=== PATIENT | male | born 1950 | race Caucasian/White ===

== ENCOUNTER 2022-08-06 14:17 | Inpatient (IN) ==
[2022-08-06] MEDS ORDERED: Iopamidol - 370 500 ML MLS IVP ONE (17:40)
[2022-08-06] MEDS ORDERED: 0.9 % Sodium Chloride 1,000 ML IVC ONE (19:08)
[2022-08-06] MEDS ORDERED: cefTRIAXone 2,000 MG in 0.9 % Sodium Chloride 20 ML IVP ONE (19:09)
[2022-08-06] MEDS ORDERED: Vancomycin 1,750 MG/517.5 ML IV.SOLN IVPB ONE (19:09)
[2022-08-06] MEDS ORDERED: *HR* FentaNYL (PF) 100 MCG/2 ML VIAL IVP ONE (20:12)
[2022-08-06] MEDS: Tdap (Boostrix) Vaccine 0.5 ML SYRINGE IM ONE ×2 (21:05→21:11)
[2022-08-06] MEDS ORDERED: Acetaminophen 325 MG TABLET PO PRN (21:37)
[2022-08-06] MEDS ORDERED: Naloxone 0.4 MG/ML INJ IVP PRN (21:37)
[2022-08-06] MEDS ORDERED: Ondansetron 4 MG/2 ML VIAL IVP PRN (21:37)
[2022-08-06] MEDS ORDERED: Vancomycin 1,750 MG in 0.9 % Sodium Chloride 250 ML IVPB SCH (22:00)
[2022-08-06] MEDS ORDERED: *HR* Dextrose 50 % in Water (Syg) 50 ML SYRINGE IVP PRN (22:01)
[2022-08-06] MEDS ORDERED: D5% in Water 1,000 ML IVC PRN (22:01)
[2022-08-06] MEDS ORDERED: Dextrose Gel 15 GM/37.5 ML TUBE PO PRN ×2 (22:01)
[2022-08-07] MEDS: Melatonin 3 MG TABLET PO SCH ×2 (00:07→20:26)
[2022-08-07] MEDS: Morphine Sulfate ER (12 HR) 15 MG TABLET.ER PO SCH ×3 (00:08→20:26)
[2022-08-07 00:45] LABS: Basophils % 0.3 %; Eosinophils # 0.2 K/mcL (0.0-0.6); Eosinophils % 1.8 %; Hematocrit 39.1 % (37.5-50.1); Hemoglobin 12.5 g/dL (12.9-16.9); Immature Granulocytes % 0.3 % (0-4); Lymphocytes # 1.5 K/mcL (0.6-4.6); Mean Corpuscular Hemoglobin 25.9 pg (28.0-33.3); Mean Corpuscular Volume 81.1 fL (83.0-100.0); Mean Platelet Volume 9.1 fL (9.4-12.4); Monocytes % 11.2 %; Neutrophils # 6.1 K/mcL (1.6-8.9); Platelet Count 208 K/mcL (140-400); Red Blood Count 4.82 M/mcL (4.19-5.50); Red Cell Distribution Width 14.8 % (11.5-14.5); Segmented Neutrophils % 69.4 %; White Blood Count 8.8 K/mcL (4.3-11.1)
[2022-08-07 01:11] LABS: Alanine Aminotransferase 11 Units/L (7-52); Albumin 3.7 g/dL (3.5-5.7); Albumin/Globulin Ratio 1.2 (1.1-2.2); Alkaline Phosphatase 95 Units/L (34-104); Aspartate Amino Transferase 14 Units/L (13-39); Bilirubin,Direct 0.1 mg/dL (0.0-0.2); Bilirubin,Indirect 0.5 mg/dL (0.0-1.0); Bilirubin,Total 0.6 mg/dL (0.3-1.0); C-Reactive Protein 29 mg/L (Less than 10); Globulin 3.2 g/dL (2.4-3.5); Magnesium 1.6 mg/dL (1.6-2.6); Total Protein 6.9 g/dL (6.4-8.9)
[2022-08-07 01:16] LABS: INR 1.1; Prothrombin Time 12.6 Seconds (9.4-12.1)
[2022-08-07 01:25] LABS: Thyroid Stimulating Hormone 2.906 mcIU/mL (0.340-5.600)
[2022-08-07 01:28] LABS: Estimated Average Glucose 174 mg/dl; Hemoglobin A1C 7.7 %
[2022-08-07 03:44] LABS: BUN/Creatinine Ratio 13 (6-26); Blood Urea Nitrogen 9 mg/dL (8-23)
[2022-08-07] MEDS: Vancomycin 1,250 MG/262.5 ML IV.SOLN IVPB SCH ×2 (06:24→18:03)
[2022-08-07] MEDS: Levothyroxine 25 MCG TABLET PO SCH (06:28)
[2022-08-07] MEDS: Insulin LISPRO 300 UNITS/3 ML VIAL SUBQ SCH ×3 (08:43→16:41)
[2022-08-07] MEDS: Cholecalciferol (D-3) 1,000 UNIT (25MCG) TABLET PO SCH (08:53)
[2022-08-07] MEDS: Loratadine 10 MG TABLET PO SCH (08:54)
[2022-08-07] MEDS: Baclofen 10 MG TABLET PO SCH ×4 (08:54→20:26)
[2022-08-07] MEDS: amLODIPine 5 MG TABLET PO SCH (08:54)
[2022-08-07] MEDS: lisinopriL 20 MG TABLET PO SCH (08:54)
[2022-08-07] MEDS: hydroCHLOROthiazide 25 MG TABLET PO SCH (08:54)
[2022-08-07] MEDS: cefTRIAXone 1,000 MG in 0.9 % Sodium Chloride Mini Bag 100 ML IVPB SCH (08:55)
[2022-08-07] MEDS ORDERED: FLUTICASONE PROPION IH SCH (09:00)
[2022-08-07] MEDS ORDERED: SALMETEROL IH SCH (09:00)
[2022-08-07] MEDS: Budesonide/Formoterol 160/4.5 1 PUFF INH IH SCH ×2 (13:10→20:09)
[2022-08-07] MEDS ORDERED: Insulin DETEMIR 100 UNIT/ML X5UNITS SUBQ SCH (21:00)
[2022-08-08] MEDS: Levothyroxine 25 MCG TABLET PO SCH (05:40)
[2022-08-08] MEDS ORDERED: Vancomycin 1,500 MG/265 ML IV.SOLN IVPB SCH (07:00)
[2022-08-08] MEDS: Budesonide/Formoterol 160/4.5 1 PUFF INH IH SCH ×2 (07:42→21:52)
[2022-08-08] MEDS: Insulin LISPRO 300 UNITS/3 ML VIAL SUBQ SCH ×2 (08:35→16:49)
[2022-08-08] MEDS: hydroCHLOROthiazide 25 MG TABLET PO SCH (08:45)
[2022-08-08] MEDS: amLODIPine 5 MG TABLET PO SCH (08:45)
[2022-08-08] MEDS: Baclofen 10 MG TABLET PO SCH ×4 (08:45→20:13)
[2022-08-08] MEDS: Loratadine 10 MG TABLET PO SCH (08:45)
[2022-08-08] MEDS: Morphine Sulfate ER (12 HR) 15 MG TABLET.ER PO SCH ×2 (08:45→20:13)
[2022-08-08] MEDS: Cholecalciferol (D-3) 1,000 UNIT (25MCG) TABLET PO SCH (08:45)
[2022-08-08] MEDS: lisinopriL 20 MG TABLET PO SCH (08:45)
[2022-08-08] MEDS: cefTRIAXone 1,000 MG in 0.9 % Sodium Chloride Mini Bag 100 ML IVPB SCH (08:46)
[2022-08-08] MEDS ORDERED: Lidocaine -MPF 2% 2 ML VIAL ONE (09:43)
[2022-08-08] MEDS ORDERED: Ondansetron 4 MG/2 ML VIAL ONE (09:43)
[2022-08-08] MEDS ORDERED: *HR* FentaNYL (PF) 100 MCG/2 ML VIAL ONE ×2 (09:43→10:28)
[2022-08-08] MEDS ORDERED: *HR* Propofol 200 MG/20 ML VIAL IVP ONE (09:43)
[2022-08-08] MEDS ORDERED: Lidocaine/EPI 1:100k 1% 10 ML Vial ONE (09:47)
[2022-08-08] MEDS ORDERED: Lidocaine HCL 4 ML Topical Solution (Laryng-O-Jet Kit Sterile Pak) TP ONE (10:11)
[2022-08-08] MEDS ORDERED: *HR* Rocuronium Bromide 50 MG/5 ML VIAL ONE (10:11)
[2022-08-08] MEDS ORDERED: Acetaminophen IV 1,000 MG/100 ML BAG IVPB ONE (10:25)
[2022-08-08] MEDS ORDERED: Promethazine 6.25 MG in Water for inj. (sterile) 20 ML IVPB PRN (11:06)
[2022-08-08] MEDS ORDERED: *HR* FentaNYL (PF) 100 MCG/2 ML VIAL IVP PRN (11:06)
[2022-08-08] MEDS: *HR* HYDROmorphone PF 0.5 MG/0.5 ML SYRINGE IVP PRN ×2 (11:20→11:25)
[2022-08-08] MEDS ORDERED: D5% in Water 1,000 ML IVC PRN (12:05)
[2022-08-08] MEDS ORDERED: Dextrose Gel 15 GM/37.5 ML TUBE PO PRN ×2 (12:05)
[2022-08-08] MEDS ORDERED: *HR* Dextrose 50 % in Water (Syg) 50 ML SYRINGE IVP PRN (12:05)
[2022-08-08] MEDS ORDERED: Naloxone 0.4 MG/ML INJ IVP PRN (12:05)
[2022-08-08] MEDS ORDERED: Acetaminophen 325 MG TABLET PO PRN (12:05)
[2022-08-08] MEDS ORDERED: Ondansetron 4 MG/2 ML VIAL IVP PRN (12:05)
[2022-08-08] MEDS: Gabapentin 300 MG CAPSULE PO SCH ×2 (16:24→20:12)
[2022-08-08] MEDS: Vancomycin 1,500 MG/265 ML IV.SOLN IVPB SCH (20:11)
[2022-08-08] MEDS: Melatonin 3 MG TABLET PO SCH (20:12)
[2022-08-08] MEDS: Insulin DETEMIR 100 UNIT/ML X5UNITS SUBQ SCH (20:22)
[2022-08-08] MEDS ORDERED: [UNRECOGNIZED DRUG - REMARK] PO SCH (21:00)
[2022-08-08] MEDS: Albuterol 2.5 MG/3 ML NEBULIZER IH SCH (21:51)
[2022-08-09] MEDS: Levothyroxine 25 MCG TABLET PO SCH (05:21)
[2022-08-09] MEDS: Albuterol 2.5 MG/3 ML NEBULIZER IH SCH ×2 (07:18→20:28)
[2022-08-09] MEDS: Budesonide/Formoterol 160/4.5 1 PUFF INH IH SCH ×2 (07:18→20:28)
[2022-08-09] MEDS: Gabapentin 300 MG CAPSULE PO SCH ×3 (08:08→20:19)
[2022-08-09] MEDS: Aspirin Enteric Coated 81 MG Tablet PO SCH (08:08)
[2022-08-09] MEDS: Cholecalciferol (D-3) 1,000 UNIT (25MCG) TABLET PO SCH (08:08)
[2022-08-09] MEDS: lisinopriL 20 MG TABLET PO SCH (08:08)
[2022-08-09] MEDS: Morphine Sulfate ER (12 HR) 15 MG TABLET.ER PO SCH ×2 (08:08→20:18)
[2022-08-09] MEDS: Isosorbide MONOnitrate (24 HR) 30 MG TAB.ER.24H PO SCH (08:09)
[2022-08-09] MEDS: amLODIPine 5 MG TABLET PO SCH (08:09)
[2022-08-09] MEDS: hydroCHLOROthiazide 25 MG TABLET PO SCH (08:09)
[2022-08-09] MEDS: Baclofen 10 MG TABLET PO SCH ×4 (08:09→20:18)
[2022-08-09] MEDS: Loratadine 10 MG TABLET PO SCH (08:09)
[2022-08-09] MEDS: Vancomycin 1,500 MG/265 ML IV.SOLN IVPB SCH ×2 (08:12→19:09)
[2022-08-09] MEDS: Fluticasone Propionate Nasal 50 MCG/SPRAY BOTTLE NS SCH (08:15)
[2022-08-09] MEDS: Insulin LISPRO 300 UNITS/3 ML VIAL SUBQ SCH ×3 (08:26→16:36)
[2022-08-09] MEDS ORDERED: cefTRIAXone 1,000 MG in 0.9 % Sodium Chloride 10 ML IVP SCH (09:00)
[2022-08-09] MEDS: Piperacillin/Tazobactam 3.375 GM in 0.9 % Sodium Chloride Mini Bag 100 ML IVPB SCH ×2 (14:49→23:25)
[2022-08-09] MEDS: Melatonin 3 MG TABLET PO SCH (20:19)
[2022-08-09] MEDS: Insulin DETEMIR 100 UNIT/ML X5UNITS SUBQ SCH (20:23)
[2022-08-10 03:38] LABS: Basophils % 0.5 %; Eosinophils # 0.1 K/mcL (0.0-0.6); Eosinophils % 0.7 %; Hematocrit 37.2 % (37.5-50.1); Hemoglobin 11.6 g/dL (12.9-16.9); Immature Granulocytes % 0.2 % (0-4); Lymphocytes # 1.8 K/mcL (0.6-4.6); Lymphocytes % 22.6 %; Mean Corpuscular HGB Conc 31.2 g/dL (31.6-35.5); Mean Corpuscular Hemoglobin 25.7 pg (28.0-33.3); Mean Corpuscular Volume 82.5 fL (83.0-100.0); Mean Platelet Volume 9.1 fL (9.4-12.4); Monocytes # 0.8 K/mcL (0.0-1.3); Monocytes % 9.7 %; Neutrophils # 5.3 K/mcL (1.6-8.9); Platelet Count 219 K/mcL (140-400); Red Blood Count 4.51 M/mcL (4.19-5.50); Red Cell Distribution Width 14.9 % (11.5-14.5); Segmented Neutrophils % 66.3 %
[2022-08-10 03:59] LABS: BUN/Creatinine Ratio 28 (6-26); Blood Urea Nitrogen 21 mg/dL (8-23); Calcium 8.6 mg/dL (8.6-10.3); Carbon Dioxide 28 mEq/L (23-29); Chloride 106 mEq/L (98-107); Glucose 177 mg/dL (70-105); Magnesium 1.9 mg/dL (1.6-2.6); Osmolality,Calculated 297 (280-300); Phosphorous 3.2 mg/dL (2.7-4.5); Potassium 3.9 mEq/L (3.5-5.1); Sodium 140 mEq/L (136-145)
[2022-08-10] MEDS: *HR* Enoxaparin 40 MG/0.4 ML SYRINGE SQ SCH (05:38)
[2022-08-10] MEDS: Levothyroxine 25 MCG TABLET PO SCH (05:38)
[2022-08-10] MEDS: amLODIPine 5 MG TABLET PO SCH (08:34)
[2022-08-10] MEDS: lisinopriL 20 MG TABLET PO SCH (08:34)
[2022-08-10] MEDS: Aspirin Enteric Coated 81 MG Tablet PO SCH (08:34)
[2022-08-10] MEDS: Isosorbide MONOnitrate (24 HR) 30 MG TAB.ER.24H PO SCH (08:34)
[2022-08-10] MEDS: Loratadine 10 MG TABLET PO SCH (08:34)
[2022-08-10] MEDS: hydroCHLOROthiazide 25 MG TABLET PO SCH (08:34)
[2022-08-10] MEDS: Gabapentin 300 MG CAPSULE PO SCH ×3 (08:35→21:00)
[2022-08-10] MEDS: Cholecalciferol (D-3) 1,000 UNIT (25MCG) TABLET PO SCH (08:35)
[2022-08-10] MEDS: Morphine Sulfate ER (12 HR) 15 MG TABLET.ER PO SCH ×2 (08:35→20:59)
[2022-08-10] MEDS: Baclofen 10 MG TABLET PO SCH ×4 (08:35→20:59)
[2022-08-10] MEDS: Fluticasone Propionate Nasal 50 MCG/SPRAY BOTTLE NS SCH (08:36)
[2022-08-10] MEDS: Piperacillin/Tazobactam 3.375 GM in 0.9 % Sodium Chloride Mini Bag 100 ML IVPB SCH (08:37)
[2022-08-10] MEDS: Vancomycin 1,500 MG/265 ML IV.SOLN IVPB SCH (08:37)
[2022-08-10] MEDS: Insulin LISPRO 300 UNITS/3 ML VIAL SUBQ SCH ×3 (08:49→18:09)
[2022-08-10] MEDS: Albuterol 2.5 MG/3 ML NEBULIZER IH SCH (11:08)
[2022-08-10] MEDS: Budesonide/Formoterol 160/4.5 1 PUFF INH IH SCH ×2 (11:09→20:14)
[2022-08-10] MEDS: cefTRIAXone 2,000 MG in 0.9 % Sodium Chloride 20 ML IVP SCH (15:37)
[2022-08-10] MEDS: metroNIDAZOLE 500 MG TABLET PO SCH ×2 (15:39→21:00)
[2022-08-10] MEDS: Melatonin 3 MG TABLET PO SCH (20:59)
[2022-08-10] MEDS: Insulin DETEMIR 100 UNIT/ML X5UNITS SUBQ SCH (21:00)
[2022-08-11] MEDS: Albuterol 2.5 MG/3 ML NEBULIZER IH SCH ×3 (05:16→20:05)
[2022-08-11] MEDS: Levothyroxine 25 MCG TABLET PO SCH (05:56)
[2022-08-11] MEDS: *HR* Enoxaparin 40 MG/0.4 ML SYRINGE SQ SCH (05:56)
[2022-08-11] MEDS: Insulin LISPRO 300 UNITS/3 ML VIAL SUBQ SCH ×3 (09:51→18:08)
[2022-08-11] MEDS: Baclofen 10 MG TABLET PO SCH ×4 (09:52→22:39)
[2022-08-11] MEDS: Loratadine 10 MG TABLET PO SCH (09:53)
[2022-08-11] MEDS: metroNIDAZOLE 500 MG TABLET PO SCH ×3 (09:53→22:38)
[2022-08-11] MEDS: lisinopriL 20 MG TABLET PO SCH (09:53)
[2022-08-11] MEDS: Isosorbide MONOnitrate (24 HR) 30 MG TAB.ER.24H PO SCH (09:53)
[2022-08-11] MEDS: Gabapentin 300 MG CAPSULE PO SCH ×3 (09:53→22:36)
[2022-08-11] MEDS: Cholecalciferol (D-3) 1,000 UNIT (25MCG) TABLET PO SCH (09:54)
[2022-08-11] MEDS: hydroCHLOROthiazide 25 MG TABLET PO SCH (09:54)
[2022-08-11] MEDS: Aspirin Enteric Coated 81 MG Tablet PO SCH (09:54)
[2022-08-11] MEDS: amLODIPine 5 MG TABLET PO SCH (09:54)
[2022-08-11] MEDS: Morphine Sulfate ER (12 HR) 15 MG TABLET.ER PO SCH ×2 (09:54→22:39)
[2022-08-11] MEDS: Fluticasone Propionate Nasal 50 MCG/SPRAY BOTTLE NS SCH (09:55)
[2022-08-11] MEDS: cefTRIAXone 2,000 MG in 0.9 % Sodium Chloride 20 ML IVP SCH (09:55)
[2022-08-11] MEDS: Budesonide/Formoterol 160/4.5 1 PUFF INH IH SCH ×2 (11:40→20:05)
[2022-08-11] MEDS: Melatonin 3 MG TABLET PO SCH (22:39)
[2022-08-11] MEDS: Insulin DETEMIR 100 UNIT/ML X5UNITS SUBQ SCH (22:39)
[2022-08-12] MEDS: *HR* Enoxaparin 40 MG/0.4 ML SYRINGE SQ SCH (05:51)
[2022-08-12] MEDS: Levothyroxine 25 MCG TABLET PO SCH (05:52)
[2022-08-12 09:05] LABS: BUN/Creatinine Ratio 28 (6-26); Blood Urea Nitrogen 20 mg/dL (8-23); Calcium 9.1 mg/dL (8.6-10.3); Carbon Dioxide 29 mEq/L (23-29); Chloride 103 mEq/L (98-107); Glucose 202 mg/dL (70-105); Osmolality,Calculated 294 (280-300); Phosphorous 3.6 mg/dL (2.7-4.5); Potassium 3.9 mEq/L (3.5-5.1); Sodium 138 mEq/L (136-145)
[2022-08-12] MEDS: metroNIDAZOLE 500 MG TABLET PO SCH ×3 (09:05→21:20)
[2022-08-12] MEDS: Loratadine 10 MG TABLET PO SCH (09:05)
[2022-08-12] MEDS: Gabapentin 300 MG CAPSULE PO SCH ×3 (09:05→21:21)
[2022-08-12] MEDS: Morphine Sulfate ER (12 HR) 15 MG TABLET.ER PO SCH ×2 (09:05→21:20)
[2022-08-12] MEDS: cefTRIAXone 2,000 MG in 0.9 % Sodium Chloride 20 ML IVP SCH (09:06)
[2022-08-12] MEDS: hydroCHLOROthiazide 25 MG TABLET PO SCH (09:06)
[2022-08-12] MEDS: Baclofen 10 MG TABLET PO SCH ×4 (09:06→21:20)
[2022-08-12] MEDS: lisinopriL 20 MG TABLET PO SCH (09:06)
[2022-08-12] MEDS: Aspirin Enteric Coated 81 MG Tablet PO SCH (09:06)
[2022-08-12] MEDS: amLODIPine 5 MG TABLET PO SCH (09:06)
[2022-08-12] MEDS: Cholecalciferol (D-3) 1,000 UNIT (25MCG) TABLET PO SCH (09:06)
[2022-08-12] MEDS: Isosorbide MONOnitrate (24 HR) 30 MG TAB.ER.24H PO SCH (09:06)
[2022-08-12] MEDS: Insulin LISPRO 300 UNITS/3 ML VIAL SUBQ SCH ×3 (09:10→17:28)
[2022-08-12] MEDS: Budesonide/Formoterol 160/4.5 1 PUFF INH IH SCH ×2 (10:42→20:29)
[2022-08-12] MEDS: Albuterol 2.5 MG/3 ML NEBULIZER IH SCH ×2 (10:44→20:29)
[2022-08-12] MEDS: Fluticasone Propionate Nasal 50 MCG/SPRAY BOTTLE NS SCH (12:14)
[2022-08-12] MEDS: CeFAZolin 2,000 MG/120 ML BAG IVPB SCH ×3 (13:59→23:59)
[2022-08-12] MEDS: Melatonin 3 MG TABLET PO SCH (21:20)
[2022-08-12] MEDS: Insulin DETEMIR 100 UNIT/ML X5UNITS SUBQ SCH (21:21)
[2022-08-13] MEDS: *HR* Enoxaparin 40 MG/0.4 ML SYRINGE SQ SCH (05:25)
[2022-08-13] MEDS: Levothyroxine 25 MCG TABLET PO SCH (05:25)
[2022-08-13] MEDS: CeFAZolin 2,000 MG/120 ML BAG IVPB SCH ×2 (07:35→15:18)
[2022-08-13] MEDS: Gabapentin 300 MG CAPSULE PO SCH ×2 (07:35→15:18)
[2022-08-13] MEDS: Cholecalciferol (D-3) 1,000 UNIT (25MCG) TABLET PO SCH (07:35)
[2022-08-13] MEDS: Loratadine 10 MG TABLET PO SCH (07:36)
[2022-08-13] MEDS: Isosorbide MONOnitrate (24 HR) 30 MG TAB.ER.24H PO SCH (07:36)
[2022-08-13] MEDS: Morphine Sulfate ER (12 HR) 15 MG TABLET.ER PO SCH (07:36)
[2022-08-13] MEDS: amLODIPine 5 MG TABLET PO SCH (07:36)
[2022-08-13] MEDS: Baclofen 10 MG TABLET PO SCH ×2 (07:37→13:03)
[2022-08-13] MEDS: Fluticasone Propionate Nasal 50 MCG/SPRAY BOTTLE NS SCH (07:37)
[2022-08-13] MEDS: lisinopriL 20 MG TABLET PO SCH (07:37)
[2022-08-13] MEDS: Aspirin Enteric Coated 81 MG Tablet PO SCH (07:37)
[2022-08-13] MEDS: hydroCHLOROthiazide 25 MG TABLET PO SCH (07:37)
[2022-08-13] MEDS: metroNIDAZOLE 500 MG TABLET PO SCH ×2 (07:37→15:18)
[2022-08-13 07:41] VITALS: BP 146/77; PULSE 52; TEMP 98
[2022-08-13] MEDS: Insulin LISPRO 300 UNITS/3 ML VIAL SUBQ SCH ×2 (07:59→12:19)
[2022-08-13] MEDS: Budesonide/Formoterol 160/4.5 1 PUFF INH IH SCH (08:25)
[2022-08-13] MEDS: Albuterol 2.5 MG/3 ML NEBULIZER IH SCH (08:44)
[2022-08-13] MEDS ORDERED: Flu Vac QV 22-23 (6MOS UP)/PF 0.5 ML SYRINGE IM ONE (09:29)
[2022-08-13 12:43] VITALS: O2SAT 94
== END 2022-08-13 16:15 | disposition home health service (06) | DRG 629 ==
LOC: 4WAOSI 14:17 → EMEROOARM 14:17 → SUATTDRO 20:36 → 4WAOSI 21:41
PROVIDERS: ADMIT Internal Medicine; ATTEND Internal Medicine